=== PATIENT | male | born 1960 | race Caucasian/White ===

== ENCOUNTER → 2017-06-06 | Day surgery (SDC) | payer BC ==
[~2017-06-06] MED LIST: PROPOFOL 20 ML IV
[2017-06-06] MEDS: IV RINGERS,LACTATED 1000ML 1,000 ML IV (12:45)
== END | disposition home or self-care (01) ==
LOC: SURG 12:07
DX: Z12.11 Encounter for screening for malignant neoplasm of colon (principal); D12.3 Benign neoplasm of transverse colon; K57.30 Diverticulosis of large intestine without perforation or abscess without bleeding; K64.4 Residual hemorrhoidal skin tags; K64.0 First degree hemorrhoids; Z86.718 Personal history of other venous thrombosis and embolism; Z83.71 Family history of colonic polyps; Z72.89 Other problems related to lifestyle; Z79.899 Other long term (current) drug therapy
CPT/HCPCS: 45380; J2704